=== PATIENT | female | born 1955 | race American Indian/Alaskan Native ===

== ENCOUNTER 2018-02-19 10:03 | Inpatient (IN) | payer MEDICAID, OTHER ==
[2018-02-19 10:10] VITALS: BMI 28.8
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
[2018-02-19] MEDS ORDERED: cefTRIAXone 2 GM IN NS 2 GM/100 ML BAG IVPB STA (10:26)
[2018-02-19] MEDS ORDERED: Azithromycin 500MG/NS 250ml 500 MG/250 ML BAG IVPB STA (10:26)
[2018-02-19] MEDS ORDERED: Albuterol-Ipratrop 3 mg / 0.5 (3 ml) UD IH STA (10:26)
[2018-02-19] MEDS ORDERED: Magnesium Oxide 400 mg Tab UD PO STA (10:26)
[2018-02-19] MEDS ORDERED: Sodium Chloride 0.9% 500 ML IV STA (12:10)
[2018-02-19 12:37] LABS: VENOUS BLOOD GAS BASE EXCESS 3.2 mmol/L (0.0-2.0); VENOUS BLOOD GAS PO2 62 mm/Hg (30-55); VENOUS BLOOD PH 7.36 (7.32-7.43)
[2018-02-19 12:40] LABS: BASO # 0.01 K/mm3 (0.0-2.0); BASO % 0.1 % (0.0-3.0); EOS # 0.1 (0.0-0.7); EOS % 0.7 % (1.5-5.0); GRAN # 12.29 (1.4-6.5); GRAN % 80.5 % (50.0-68.0); HEMOGLOBIN 13.1 g/dL (12.0-16.0); LYMPH % 13.1 % (22.0-35.0); MEAN CELL VOLUME 92.4 fl (80.0-105.0); MEAN CORPUSCULAR HEMOGLOBIN 29.2 pg (25.0-35.0); MEAN CORPUSCULAR HGB CONC 31.6 g/dl (31.0-37.0); MEAN PLATELET VOLUME 9.6 fl (7.0-11.0); MONO # 0.9 (0.1-0.6); MONO % 5.6 % (1.0-6.0); RBC 4.48 10^6/uL (3.5-6.1); RED CELL DISTRIBUTION WIDTH 13.6 % (11.5-14.5); WHITE BLOOD COUNT 15.2 10^3/uL (4.5-11.0)
[2018-02-19 12:49] LABS: BLOOD UREA NITROGEN 18 mg/dL (7-21); CALCIUM 8.7 mg/dL (8.4-10.5); GFR NON-AFRICAN AMERICAN > 60
--- NOTE | 2018-02-19 13:06 | RAD ---
Date of service: 02/19/2018 HISTORY: couigh 2 wks, rales on ausc COMPARISON: 06/08/2014 FINDINGS: LUNGS: Bibasilar infiltrates PLEURA: No significant pleural effusion identified, no pneumothorax apparent. CARDIOVASCULAR: No aortic atherosclerotic calcification present. Normal cardiac size. No pulmonary vascular congestion. OSSEOUS STRUCTURES: No significant abnormalities. VISUALIZED UPPER ABDOMEN: Normal. OTHER FINDINGS: None. IMPRESSION: Bibasilar infiltrates
--- NOTE | 2018-02-19 13:38 | CARD ---
APPROVED REPORT Date of service: 02/19/2018 EKG Measurement Heart [id number] <Conclusion> Sinus tachycardia Possible Left atrial enlargement Nonspecific T wave abnormality
[2018-02-19] MEDS ORDERED: Albuterol-Ipratrop 3 mg / 0.5 (3 ml) UD IH PRN (14:16)
[2018-02-19] MEDS ORDERED: methylPREDNISolone 40 MG in Sodium Chloride 0.9% 100 ML IVPB ONE (14:23)
[2018-02-19] MEDS ORDERED: Sodium Chloride 0.9% 1,000 ML IV SCH (14:30)
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
[2018-02-19] MEDS: Sodium Chloride 0.9% 1,000 ML IV SCH (14:50)
[2018-02-19 16:48] LABS: MYCOPLASMA PNEUMONIAE IGM NEGATIVE (NEGATIVE)
[2018-02-19] MEDS: Enoxaparin 40 mg Syringe SC SCH (17:25)
[2018-02-19] MEDS: guaiFENesin 200 mg/10 ml Syrup UD PO PRN (17:26)
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
[2018-02-19] MEDS ORDERED: LEVETIRACETAM 1000 MG PO SCH (18:00)
[2018-02-19] MEDS: Albuterol-Ipratrop 3 mg / 0.5 (3 ml) UD IH SCH (20:47)
[2018-02-19] MEDS: Budesonide 0.5 mg/2 ml Inhal Susp UD IH SCH (20:47)
[2018-02-19] MEDS: Arformoterol 15 mcg/2 ml Inh Sol IH SCH (20:47)
[2018-02-19] MEDS ORDERED: Pneumococcal 23-Valent Vaccine IM ONE (21:43)
[2018-02-19] MEDS ORDERED: Influenza Vaccine 60 mcg/0.5 mL SYR (4YR UP) IM ONE (21:43)
[2018-02-19] MEDS: MethylPREDNISolone 40 mg Vial IVP SCH (22:10)
[2018-02-19] MEDS: Piperacillin/Tazobact 3.375 gm 100 ML IVPB SCH (22:11)
[2018-02-20] MEDS: Albuterol-Ipratrop 3 mg / 0.5 (3 ml) UD IH SCH ×5 (01:59→23:59)
[2018-02-20] MEDS: guaiFENesin 200 mg/10 ml Syrup UD PO PRN ×5 (04:01→23:53)
[2018-02-20] MEDS: Sodium Chloride 0.9% 1,000 ML IV SCH ×2 (05:31→09:32)
[2018-02-20] MEDS: Piperacillin/Tazobact 3.375 gm 100 ML IVPB SCH ×3 (05:31→22:12)
[2018-02-20] MEDS: MethylPREDNISolone 40 mg Vial IVP SCH ×3 (05:31→22:07)
[2018-02-20 07:48] LABS: GRAN # 12.78 (1.4-6.5); GRAN % 91.4 % (50.0-68.0); HEMOGLOBIN 12.4 g/dL (12.0-16.0); LYMPH % 6.9 % (22.0-35.0); MEAN CELL VOLUME 92.1 fl (80.0-105.0); MEAN CORPUSCULAR HEMOGLOBIN 28.6 pg (25.0-35.0); MEAN CORPUSCULAR HGB CONC 31.1 g/dl (31.0-37.0); MEAN PLATELET VOLUME 9.6 fl (7.0-11.0); MONO # 0.2 (0.1-0.6); MONO % 1.7 % (1.0-6.0); PLATELET COUNT 238 10^3/uL (120.0-450.0); RBC 4.33 10^6/uL (3.5-6.1); RED CELL DISTRIBUTION WIDTH 13.4 % (11.5-14.5)
[2018-02-20] MEDS: Arformoterol 15 mcg/2 ml Inh Sol IH SCH ×2 (07:55→19:35)
[2018-02-20] MEDS: Budesonide 0.5 mg/2 ml Inhal Susp UD IH SCH ×2 (07:55→19:35)
[2018-02-20 08:07] LABS: ALB/GLOB RATIO 0.9 (1.1-1.8); ALBUMIN 3.6 g/dL (3.0-4.8); ALT/SGPT 18 U/L (7-56); AST/SGOT 24 U/L (14-36); BLOOD UREA NITROGEN 13 mg/dL (7-21); GFR NON-AFRICAN AMERICAN > 60
[2018-02-20 08:11] LABS: LYMPHOCYTE 7 % (22.0-35.0); MONOCYTE 1 % (1.0-6.0); NEUTROPHIL 92 % (50.0-70.0)
[2018-02-20 08:12] LABS: PLATELET ESTIMATE NORMAL (NORMAL)
[2018-02-20] MEDS: Azithromycin 500MG/NS 250ml 500 MG/250 ML BAG IVPB SCH (09:31)
[2018-02-20] MEDS: Enoxaparin 40 mg Syringe SC SCH (09:32)
[2018-02-20] MEDS ORDERED: NIFEDIPINE 30 MG PO SCH ×2 (10:00)
[2018-02-20] MEDS ORDERED: cefTRIAXone 1 gm 1 GM/100 ML BAG IVPB SCH (10:00)
[2018-02-20] MEDS ORDERED: Pantoprazole 40 mg EC Tab PO SCH (10:00)
--- NOTE | 2018-02-20 13:13 | CP.PCM.PN ---
<Rafi Aguilera - Last Filed: 02/20/18 15:29> Subjective - Date & Time of Evaluation Date of Evaluation: 02/20/18 Time of Evaluation: 15:29 - Subjective Subjective: Rafi Aguilera DO PGY1 - Internal Medicine Track Layer - Medicine Progress Note Patient was seen and examined at bedside this morning, no acute events overnight. Patient was afebrile overnight. Still complaining of productive cough, fatigue, dyspnea. Does report her cough is improving w/ supressants. Denies any cp, abd pain, n/v/d/c, urinary discomfort. Objective - Vital Signs/Intake and Output Vital Signs (last 24 hours): Temp Pulse Resp BP Pulse Ox 97.5 F L 63 18 156/81 H 95 02/20/18 06:00 02/20/18 06:00 02/20/18 06:00 02/20/18 06:00 02/20/18 06:00 Intake and Output: 02/20/18 02/20/18 06:59 18:59 Intake Total 360 Balance 360 - Medications Medications: Current Medications Acetaminophen (Tylenol 325mg Tab) 650 mg PO Q4 PRN PRN Reason: Fever >100.4 F Albuterol/Ipratropium (Duoneb 3 Mg/0.5 Mg (3 Ml) Ud) 3 ml IH [id number] [facility] Last Admin: 02/20/18 07:55 Dose: 3 ml Albuterol/Ipratropium (Duoneb 3 Mg/0.5 Mg (3 Ml) Ud) 3 ml IH [id number] PRN PRN Reason: Shortness of Breath Arformoterol Tartrate (Brovana) 15 mcg IH [id number] [facility] Last Admin: 02/20/18 07:55 Dose: 15 mcg Aspirin (Aspirin Chewable) 81 mg PO DAILY [facility] Last Admin: 02/20/18 09:31 Dose: 81 mg Atorvastatin Calcium (Lipitor) 40 mg PO HS [facility] Last Admin: 02/19/18 22:10 Dose: 40 mg Budesonide (Pulmicort Respules) 1 mg IH [id number] [facility] Last Admin: 02/20/18 07:55 Dose: 1 mg Enoxaparin Sodium (Lovenox) 40 mg SC DAILY [facility]; Protocol Last Admin: 02/20/18 09:32 Dose: 40 mg Guaifenesin (Robitussin) 200 mg PO Q4H PRN PRN Reason: Cough and congestion Last Admin: 02/20/18 09:37 Dose: 200 mg Azithromycin (Zithromax 500mg In Ns) 500 mg in 250 mls @ 167 mls/hr IVPB DAILY [facility]; Protocol Last Admin: 02/20/18 09:31 Dose: 167 mls/hr Piperacillin Sod/Tazobactam Sod (Zosyn 3.375 In Ns 100ml) 100 mls @ 25 mls/hr IVPB Q8 [facility]; Protocol Last Admin: 02/20/18 05:31 Dose: 25 mls/hr Levetiracetam (Keppra) 500 mg PO BID [facility] Methadone HCl (Methadone) 110 mg PO DAILY [facility] Last Admin: 02/20/18 09:53 Dose: 110 mg Methylprednisolone (Solu-Medrol) 40 mg IVP Q8 [facility] Last Admin: 02/20/18 05:31 Dose: 40 mg Montelukast Sodium (Singulair) 10 mg PO HS [facility] Last Admin: 02/19/18 22:10 Dose: 10 mg Pantoprazole Sodium (Protonix Ec Tab) 40 mg PO 0600 [facility] - Labs Labs: 02/20/18 07:30 02/20/18 07:30 Physical Exam - Constitutional Appears: Well, No Acute Distress - Head Exam Head Exam: ATRAUMATIC, NORMOCEPHALIC - Eye Exam Eye Exam: EOMI, Normal appearance, PERRL - ENT Exam ENT Exam: Moist mucous membranes, No oropharyngeal erythema or exudate - Neck Exam Neck exam: No cervical lymphadenopathy - Respiratory Exam Respiratory Exam: Diffuse wheezes, crackles, ronchi throughout all lung mendoza bilaterally; Prolonged expiratory phase - Cardiovascular Exam Cardiovascular Exam: RRR, +S1, +S2 - GI/Abdominal Exam GI & Abdominal Exam: Normal Bowel Sounds, Soft. absent: Tenderness - Extremities Exam Extremities exam: Positive for: pedal pulses present. Negative for: pedal edema - Neurological Exam Neurological exam: Alert, Oriented x3 - Psychiatric Exam Psychiatric exam: Normal Affect, Normal Mood - Skin Skin Exam: Dry, Intact, Normal Color Assessment and Plan - Assessment and Plan (Free Text) Assessment: 62F w/ PMH of Epilepsy, CAD s/p stent, HTN, COPD, presented to [facility] on 02/19 w/ complaints of fever, dyspnea, and cough. Admitted for work up and management of Sepsis 2/2 CAP; as well as COPD exacerbation w/ respiratory failure 2/2 CAP. Plan: Sepsis 2/2 CAP - Improving CXR 02/19 - Bibasilar infiltrates Afebrile, WBC downtrending, HR regular rate, lactate wnl Procal elevated on admission; downtrending today Flu, Strep HIV, GBS, Mycoplasma negative Legionella pending Sputum Cx - normal oral humble on stain; cultures pending Blood Cx negative at 24H Antibiotic coverage day 2 DC Rocephin, Start Zosyn, C/w Zithromax 500 QD DC IVF NS@100 mls/hr C/w Acetaminophen 650mg PRN for fever + mild pain C/w Robitussin ID following Appreciate Recs COPD Exacerbation w/ respiratory failure 2/2 CAP: C/w 3L O2 via NC - Maintain O2 Sat 90-92% Solumedrol 40 Q8 x 4 days - Day 2 Home Symbicort NF here; C/w Brovana + Budesonide Q12 C/w Singulair QD Hx HTN Patient was hypertensive this morning; normotensive on reevaluation Will continue holding nifedipine and will DC IVF Hx Seizure Patient reports she is on Keppra 500mg BID Hx Opiate Abuse C/w Home Methadone 110 QAM - confirmed w/ spectrum Hx HLD C/w Home lipitor Hx CAD C/w ASA 81 QD Prophylaxis GI: Protonix DVT: Lovenox Patient was seen, examined, and discussed w/ attending physician Dr. Delia Aguilera DO PGY1 - Internal Medicine Track Layer - Medicine H&P <Delia Aguilera R - Last Filed: 02/22/18 07:54> Objective - Vital Signs/Intake and Output Vital Signs (last 24 hours): Temp Pulse Resp BP Pulse Ox 98.2 F 73 16 145/71 96 02/21/18 22:36 02/21/18 22:36 02/21/18 22:36 02/21/18 22:36 02/21/18 22:36 Intake and Output: 02/22/18 02/22/18 06:59 18:59 Intake Total 240 Balance 240 - Medications Medications: Current Medications Acetaminophen (Tylenol 325mg Tab) 650 mg PO Q4 PRN PRN Reason: Fever >100.4 F Acetylcysteine (Acetylcysteine 20%) 4 ml IH [id number] PRN PRN Reason: Cough Last Admin: 02/21/18 20:32 Dose: 4 ml Albuterol/Ipratropium (Duoneb 3 Mg/0.5 Mg (3 Ml) Ud) 3 ml IH Q2H PRN PRN Reason: Shortness of Breath Albuterol/Ipratropium (Duoneb 3 Mg/0.5 Mg (3 Ml) Ud) 3 ml IH [id number] [facility] Last Admin: 02/22/18 05:06 Dose: Not Given Arformoterol Tartrate (Brovana) 15 mcg IH [id number] [facility] Last Admin: 02/21/18 20:18 Dose: 15 mcg Aspirin (Aspirin Chewable) 81 mg PO DAILY [facility] Last Admin: 02/21/18 09:43 Dose: 81 mg Atorvastatin Calcium (Lipitor) 40 mg PO HS [facility] Last Admin: 02/21/18 21:29 Dose: 40 mg Benzonatate (Tessalon Perles) 100 mg PO TID [facility] Last Admin: 02/21/18 18:05 Dose: 100 mg Budesonide (Pulmicort Respules) 1 mg IH [id number] [facility] Last Admin: 02/21/18 20:18 Dose: 1 mg Enoxaparin Sodium (Lovenox) 40 mg SC DAILY [facility]; Protocol Last Admin: 02/21/18 09:42 Dose: 40 mg Guaifenesin (Robitussin) 200 mg PO Q4H PRN PRN Reason: Cough and congestion Last Admin: 02/21/18 13:59 Dose: 200 mg Azithromycin (Zithromax 500mg In Ns) 500 mg in 250 mls @ 167 mls/hr IVPB DAILY [facility]; Protocol Last Admin: 02/21/18 09:42 Dose: 167 mls/hr Piperacillin Sod/Tazobactam Sod (Zosyn 3.375 In Ns 100ml) 100 mls @ 25 mls/hr IVPB Q8 [facility]; Protocol Last Admin: 02/22/18 06:22 Dose: 25 mls/hr Levetiracetam (Keppra) 500 mg PO BID [facility] Last Admin: 02/21/18 17:09 Dose: 500 mg Methadone HCl (Methadone) 110 mg PO DAILY [facility] Last Admin: 02/21/18 09:50 Dose: 110 mg Methylprednisolone (Solu-Medrol) 40 mg IVP Q8 [facility] Last Admin: 02/22/18 06:21 Dose: 40 mg Montelukast Sodium (Singulair) 10 mg PO HS [facility] Last Admin: 02/21/18 21:29 Dose: 10 mg Nifedipine (Procardia Xl) 30 mg PO DAILY [facility] Last Admin: 02/21/18 09:43 Dose: 30 mg Pantoprazole Sodium (Protonix Ec Tab) 40 mg PO 0600 [facility] Last Admin: 02/22/18 06:21 Dose: 40 mg Polyethylene Glycol (Miralax) 17 gm PO DAILY [facility] Promethazine HCl/Codeine (Phenergan/Codeine Oral Syrup) 5 ml PO Q8 PRN PRN Reason: Cough Stop: 02/23/18 22:01 Last Admin: 02/22/18 02:50 Dose: 5 ml - Labs Labs: 02/21/18 07:15 02/21/18 07:15 Attending/Attestation - Attestation I have personally seen and examined this patient.: Yes I have fully participated in the care of the patient.: Yes I have reviewed all pertinent clinical information, including history, physical exam and plan: Yes Notes (Text): Patient seen and examined by me with resident at 11AM on 02/20/18. Case including HPI, physical exam, and assessment and plan discussed with resident. Agree with above with following additions/corrections. Patient is a 62-year-old female past medical history significant for seizures, coronary artery disease, hypercholesterolemia, hypertension, and COPD the presented to emergency room with shortness of breath, productive cough, and fever. Patient states that she is feeling a little better today. She states she is still coughing "a lot" but cough syrup is helping. Shortness of breath improved. No chest pain or palpitations. No nausea, vomiting, or abdominal pain. Appetite has improved. No fevers or chills. Patient states she has a headache when she coughs. No dizziness. No dysuria. Physical exam: General: Awake and alert sitting up in bed in no acute distress HEENT: Normocephalic, atraumatic. Extraocular muscles intact, pupils equal and reactive, no scleral icterus. Oropharynx is pink and moist. No pharyngeal erythema or exudate appreciated. Neck is supple. Positive right anterior cerv ical lymphadenopathy Cardiovascular: Regular rhythm. Normal S1 and S2.No murmurs, rubs, or gallops appreciated Pulmonary: Normal respiratory effort. Positive wheezing and coarse breath sounds throughout. No rales appreciated. Gastrointestinal: Soft, nondistended. Nontender. Positive bowel sounds all 4 quadrants. No guarding. Musculoskeletal: Moves all extremities. No calf tenderness. No edema a ppreciated. No CVA tenderness. Central nervous system: AAO x3, CN II through XII grossly intact. 5/5 muscle strength all extremities. Dermatologic: Skin warm and dry. Assessment and plan: Patient is a 62-year-old female past medical history significant for seizures, coronary artery disease, hypercholesterolemia, hypertension, and COPD the presented to emergency room with shortness of breath, productive cough, and fever. 1. Sepsis secondary to community-acquired pneumonia. Fever and tachycardia resolved. Leukocytosis downtrending. ID following, recommendations appreciated. Continue Zosyn and Zithromax. Chest xray as read by me shows infiltrates at bases bilaterally. Influenza, strep Pneumoniae, mycoplasma antigen, and urine for Legionella negative. Pro-calcitonin 3.31. Lactate 0.9. 2. COPD exacerbation with hypoxemia secondary to pneumonia. Continue O2 via nasal cannula as needed. Continue Solu-Medrol 40 mg IV every 8 hours, taper. Continue Brovana and Pulmicort. Continue Robitussin as needed. Continue nebulizer treatments. Continue home singulair 3. HTN. Continue Nifedipine with hold parameters. 4. CAD. Continue home ASA and Nifedipine. Continue home lipitor 5. Seziure disorder. Continue home Keppra 500mg PO BID. 6. Hypercholesterolemia. Continue home lipitor 7. History of heroin abuse. Continue home methadone. Confirmed with patient's methadone clinic. 8. GI/DVT prophylaxis. Protonix/Lovenox 9. Patient is a full code Case was discussed in detail with patient regarding current diagnosis and treatment plan. All questions answered.
[2018-02-20] MEDS ORDERED: Albuterol-Ipratrop 3 mg / 0.5 (3 ml) UD IH PRN (16:24)
--- NOTE | 2018-02-20 18:52 | CP.PCM.PN ---
Subjective - Date & Time of Evaluation Date of Evaluation: 02/20/18 Time of Evaluation: 16:30 - Subjective Subjective: Infectious Disease Follow Up: February 20, 2018 62 yo AA female with PMHx of Epilepsy, CAD s/p stent, HTN, COPD, [place] [facility] [place] w/ complaints of dyspnea at rest and at exertion, fatigue, subjective fevers, chills, and constant productive cough w/ dark green/yellow sputum which awakens patient at night. Started on Rocephin and Azithromycin. Now on Zosyn and Azithromycin. Patient feeling slightly better today. Objective - Vital Signs/Intake and Output Vital Signs (last 24 hours): Temp Pulse Resp BP Pulse Ox 98.2 F 79 16 136/72 95 02/20/18 14:00 02/20/18 14:00 02/20/18 14:00 02/20/18 14:00 02/20/18 14:00 Intake and Output: 02/20/18 02/20/18 06:59 18:59 Intake Total 360 Balance 360 - Medications Medications: Current Medications Acetaminophen (Tylenol 325mg Tab) 650 mg PO Q4 PRN PRN Reason: Fever >100.4 F Albuterol/Ipratropium (Duoneb 3 Mg/0.5 Mg (3 Ml) Ud) 3 ml IH Q2H PRN PRN Reason: Shortness of Breath Albuterol/Ipratropium (Duoneb 3 Mg/0.5 Mg (3 Ml) Ud) 3 ml IH [id number] [facility] Arformoterol Tartrate (Brovana) 15 mcg IH [id number] [facility] Last Admin: 02/20/18 07:55 Dose: 15 mcg Aspirin (Aspirin Chewable) 81 mg PO DAILY [facility] Last Admin: 02/20/18 09:31 Dose: 81 mg Atorvastatin Calcium (Lipitor) 40 mg PO HS [facility] Last Admin: 02/19/18 22:10 Dose: 40 mg Budesonide (Pulmicort Respules) 1 mg IH [id number] [facility] Last Admin: 02/20/18 07:55 Dose: 1 mg Enoxaparin Sodium (Lovenox) 40 mg SC DAILY [facility]; Protocol Last Admin: 02/20/18 09:32 Dose: 40 mg Guaifenesin (Robitussin) 200 mg PO Q4H PRN PRN Reason: Cough and congestion Last Admin: 02/20/18 17:08 Dose: 200 mg Azithromycin (Zithromax 500mg In Ns) 500 mg in 250 mls @ 167 mls/hr IVPB DAILY [facility]; Protocol Last Admin: 02/20/18 09:31 Dose: 167 mls/hr Piperacillin Sod/Tazobactam Sod (Zosyn 3.375 In Ns 100ml) 100 mls @ 25 mls/hr IVPB Q8 [facility]; Protocol Last Admin: 02/20/18 13:39 Dose: 25 mls/hr Levetiracetam (Keppra) 500 mg PO BID [facility] Last Admin: 02/20/18 17:08 Dose: 500 mg Methadone HCl (Methadone) 110 mg PO DAILY [facility] Last Admin: 02/20/18 09:53 Dose: 110 mg Methylprednisolone (Solu-Medrol) 40 mg IVP Q8 [facility] Last Admin: 02/20/18 13:38 Dose: 40 mg Montelukast Sodium (Singulair) 10 mg PO HS [facility] Last Admin: 02/19/18 22:10 Dose: 10 mg Pantoprazole Sodium (Protonix Ec Tab) 40 mg PO 0600 [facility] - Labs Labs: 02/20/18 07:30 02/20/18 07:30 - Constitutional Appears: Non-toxic, No Acute Distress, Chronically Ill - Head Exam Head Exam: ATRAUMATIC, NORMOCEPHALIC - Eye Exam Eye Exam: EOMI, PERRL Pupil Exam: NORMAL ACCOMODATION, PERRL - ENT Exam ENT Exam: Mucous Membranes Moist, Normal External Ear Exam, TM's Normal Bilaterally - Neck Exam Neck Exam: Full ROM, Normal Inspection - Respiratory Exam Respiratory Exam: Decreased Breath Sounds, Rhonchi. absent: Rales, Wheezes Additional comments: bilateral rhonchi in lower lobes. - Cardiovascular Exam Cardiovascular Exam: REGULAR RHYTHM, RRR, +S1, +S2 - GI/Abdominal Exam GI & Abdominal Exam: Soft, Normal Bowel Sounds. absent: Distended, Tenderness - Extremities Exam Extremities Exam: Full ROM, Normal Inspection - Neurological Exam Neurological Exam: Alert, Awake, CN II-XII Intact, Oriented x3 - Psychiatric Exam Psychiatric exam: Normal Affect, Normal Mood - Skin Skin Exam: Intact, Normal Color Assessment and Plan - Assessment and Plan (Free Text) Assessment: 62 yo AA female presenting with pneumonia. Chest X-ray showing involvement of the bilateral lower lobes. The patient is currently on Rocephin and Azithromycin. On Zosyn and Azithromycin at this time. Check Procalcitonin. Supportive care. Procalcitonin of 3.31 and today is 1.70. Mild improvement. Case discussed with Dr. Aguilera. Thank you for allowing me to participate in the care of the patient, we will follow with you.
[2018-02-21] MEDS: Albuterol-Ipratrop 3 mg / 0.5 (3 ml) UD IH SCH ×6 (04:23→23:21)
[2018-02-21] MEDS: Pantoprazole 40 mg EC Tab PO SCH (06:22)
[2018-02-21] MEDS: MethylPREDNISolone 40 mg Vial IVP SCH ×3 (06:22→21:30)
[2018-02-21] MEDS: Piperacillin/Tazobact 3.375 gm 100 ML IVPB SCH ×3 (06:23→21:29)
[2018-02-21] MEDS: guaiFENesin 200 mg/10 ml Syrup UD PO PRN ×2 (06:35→13:59)
[2018-02-21] MEDS: Budesonide 0.5 mg/2 ml Inhal Susp UD IH SCH ×2 (07:34→20:18)
[2018-02-21] MEDS: Arformoterol 15 mcg/2 ml Inh Sol IH SCH ×2 (07:34→20:18)
[2018-02-21 07:50] LABS: GRAN # 17.78 (1.4-6.5); GRAN % 88.3 % (50.0-68.0); HEMOGLOBIN 12.1 g/dL (12.0-16.0); LYMPH # 1.5 (1.2-3.4); LYMPH % 7.3 % (22.0-35.0); MEAN CORPUSCULAR HEMOGLOBIN 28.6 pg (25.0-35.0); MEAN CORPUSCULAR HGB CONC 31.4 g/dl (31.0-37.0); MEAN PLATELET VOLUME 9.3 fl (7.0-11.0); MONO # 0.9 (0.1-0.6); MONO % 4.4 % (1.0-6.0); RBC 4.23 10^6/uL (3.5-6.1); RED CELL DISTRIBUTION WIDTH 13.6 % (11.5-14.5); WHITE BLOOD COUNT 20.1 10^3/uL (4.5-11.0)
[2018-02-21 08:09] LABS: ALB/GLOB RATIO 0.9 (1.1-1.8); ALBUMIN 3.5 g/dL (3.0-4.8); ALT/SGPT 24 U/L (7-56); AST/SGOT 31 U/L (14-36); BLOOD UREA NITROGEN 15 mg/dL (7-21); CALCIUM 9.3 mg/dL (8.4-10.5); GFR NON-AFRICAN AMERICAN > 60
[2018-02-21] MEDS: Azithromycin 500MG/NS 250ml 500 MG/250 ML BAG IVPB SCH (09:42)
[2018-02-21] MEDS: Enoxaparin 40 mg Syringe SC SCH (09:42)
[2018-02-21] MEDS: NIFEdipine 30 mg ER Tab PO SCH (09:43)
[2018-02-21] MEDS ORDERED: POLYETHYLENE GLYCOL 3350 17 GM/Dose PACKET PO SCH (10:00)
[2018-02-21] MEDS ORDERED: Promethazine/Cod 6.25mg-10mg/5ml Syr UD PO PRN (12:53)
--- NOTE | 2018-02-21 12:54 | CP.PCM.PN ---
<Rafi Aguilera - Last Filed: 02/21/18 12:49> Subjective - Date & Time of Evaluation Date of Evaluation: 02/21/18 Time of Evaluation: 12:49 - Subjective Subjective: Rafi Aguilera DO PGY1 - Internal Medicine Codifier - Medicine Progress Note Patient was seen and examined this morning at bedside; Last night patient reported shortness of breath; duoneb ariel/prn increased. Overnight patient reported worse coughing which interrupted w/ sleep. During evaluation this morning patient reports her SOB is improved, and denies fever. However patient is reported mild rib pain due to coughing. Patient also reports constipation this AM; when further asked she says it is common for her to go w/o BM for up to 6 days. Denies any bowel agents as outpt. Objective - Vital Signs/Intake and Output Vital Signs (last 24 hours): Temp Pulse Resp BP Pulse Ox 97.4 F L 64 18 168/79 H 96 02/21/18 06:00 02/21/18 06:00 02/21/18 06:00 02/21/18 06:00 02/21/18 06:00 Intake and Output: 02/21/18 02/21/18 06:59 18:59 Intake Total 180 Balance 180 - Medications Medications: Current Medications Acetaminophen (Tylenol 325mg Tab) 650 mg PO Q4 PRN PRN Reason: Fever >100.4 F Albuterol/Ipratropium (Duoneb 3 Mg/0.5 Mg (3 Ml) Ud) 3 ml IH Q2H PRN PRN Reason: Shortness of Breath Albuterol/Ipratropium (Duoneb 3 Mg/0.5 Mg (3 Ml) Ud) 3 ml IH [id number] [facility] Last Admin: 02/21/18 11:36 Dose: 3 ml Arformoterol Tartrate (Brovana) 15 mcg IH [id number] [facility] Last Admin: 02/21/18 07:34 Dose: 15 mcg Aspirin (Aspirin Chewable) 81 mg PO DAILY [facility] Last Admin: 02/21/18 09:43 Dose: 81 mg Atorvastatin Calcium (Lipitor) 40 mg PO HS [facility] Last Admin: 02/20/18 22:07 Dose: 40 mg Budesonide (Pulmicort Respules) 1 mg IH [id number] [facility] Last Admin: 02/21/18 07:34 Dose: 1 mg Enoxaparin Sodium (Lovenox) 40 mg SC DAILY [facility]; Protocol Last Admin: 02/21/18 09:42 Dose: 40 mg Guaifenesin (Robitussin) 200 mg PO Q4H PRN PRN Reason: Cough and congestion Last Admin: 02/21/18 06:35 Dose: 200 mg Azithromycin (Zithromax 500mg In Ns) 500 mg in 250 mls @ 167 mls/hr IVPB DAILY [facility]; Protocol Last Admin: 02/21/18 09:42 Dose: 167 mls/hr Piperacillin Sod/Tazobactam Sod (Zosyn 3.375 In Ns 100ml) 100 mls @ 25 mls/hr IVPB Q8 [facility]; Protocol Last Admin: 02/21/18 06:23 Dose: 25 mls/hr Levetiracetam (Keppra) 500 mg PO BID [facility] Last Admin: 02/21/18 09:43 Dose: 500 mg Methadone HCl (Methadone) 110 mg PO DAILY [facility] Last Admin: 02/21/18 09:50 Dose: 110 mg Methylprednisolone (Solu-Medrol) 40 mg IVP Q8 [facility] Last Admin: 02/21/18 06:22 Dose: 40 mg Montelukast Sodium (Singulair) 10 mg PO HS [facility] Last Admin: 02/20/18 22:07 Dose: 10 mg Nifedipine (Procardia Xl) 30 mg PO DAILY [facility] Last Admin: 02/21/18 09:43 Dose: 30 mg Pantoprazole Sodium (Protonix Ec Tab) 40 mg PO 0600 [facility] Last Admin: 02/21/18 06:22 Dose: 40 mg Polyethylene Glycol (Miralax) 17 gm PO DAILY [facility] - Labs Labs: 02/21/18 07:15 02/21/18 07:15 Physical Exam - Constitutional Appears: Uncomfotable, Coughing, Ill, Does not appear toxic - Head Exam Head Exam: ATRAUMATIC, NORMOCEPHALIC - Eye Exam Eye Exam: EOMI, Normal appearance, PERRL - ENT Exam ENT Exam: Moist mucous membranes, No oropharyngeal erythema or exudate - Neck Exam Neck exam: No cervical lymphadenopathy - Respiratory Exam Respiratory Exam: Ronchi have improved however diffuse wheezing still auscultated on exam; patient continues to have prolonged expiratory phase - Cardiovascular Exam Cardiovascular Exam: RRR, +S1, +S2 - GI/Abdominal Exam GI & Abdominal Exam: Normal Bowel Sounds, Soft. absent: Tenderness - Extremities Exam Extremities exam: Positive for: pedal pulses present. Negative for: pedal edema - Neurological Exam Neurological exam: Alert, Oriented x3 - Psychiatric Exam Psychiatric exam: Normal Affect, Normal Mood - Skin Skin Exam: Dry, Intact, Normal Color Assessment and Plan - Assessment and Plan (Free Text) Assessment: 62F w/ PMH of Epilepsy, CAD s/p stent, HTN, COPD, presented to [facility] on 02/19 w/ complaints of fever, dyspnea, and cough. Admitted for work up and management of Sepsis 2/2 CAP; as well as COPD exacerbation w/ respiratory failure 2/2 CAP. Plan: CAP - No longer meeting sepsis critera - CXR 02/19 - Bibasilar infiltrates - Leukocytosis worsening - most likely 2/2 steroid use - Flu, Strep HIV, GBS, Mycoplasma negative - Legionella pending - Sputum Cx - normal oral humble - Blood Cx 2/2 negative at 48H - Antibiotic coverage day 3 - C/w Zosyn, C/w Zithromax 500 QD - C/w Acetaminophen 650mg PRN for fever + mild pain - C/w Robitussin during the pay - Start Promethazine/Codeine HS for cough - 2 nights total; ending 02/22 PM - ID following Appreciate Recs COPD Exacerbation w/ respiratory failure 2/2 CAP: C/w 3L O2 via NC - Maintain O2 Sat 90-92% C/w Solumedrol 40 Q8 x 4 days - Day 3 Increased Duoneb frequency last night; Currently Q4sch/Q2prn Home Symbicort NF here; C/w Brovana + Budesonide Q12 C/w Singulair QD Hx HTN Patient was hypertensive yesterday; IVF was DC; and patient became normotensive Patient remains hypertensive this morning Will resume home nifedipine Hx Seizure C/w Keppra 500 BID Hx Opiate Abuse C/w Home Methadone 110 QAM - confirmed w/ spectrum Hx Constipation - Most likely opiate induced Start miralax 17gm QD Hx HLD C/w Home lipitor Hx CAD C/w ASA 81 QD Prophylaxis GI: Protonix DVT: Lovenox Patient was seen, examined, and discussed w/ attending physician Dr. Delia Aguilera DO PGY1 - Internal Medicine Codifier - Medicine H&P <Aguilera,Delia R - Last Filed: 02/22/18 12:38> Objective - Vital Signs/Intake and Output Vital Signs (last 24 hours): Temp Pulse Resp BP Pulse Ox 98.3 F 62 18 160/80 H 95 02/22/18 06:00 02/22/18 06:00 02/22/18 06:00 02/22/18 06:00 02/22/18 06:00 Intake and Output: 02/22/18 02/22/18 06:59 18:59 Intake Total 240 Balance 240 - Medications Medications: Current Medications Acetaminophen (Tylenol 325mg Tab) 650 mg PO Q4 PRN PRN Reason: Fever >100.4 F Acetylcysteine (Acetylcysteine 20%) 4 ml IH [id number] PRN PRN Reason: Cough Last Admin: 02/21/18 20:32 Dose: 4 ml Albuterol/Ipratropium (Duoneb 3 Mg/0.5 Mg (3 Ml) Ud) 3 ml IH Q2H PRN PRN Reason: Shortness of Breath Albuterol/Ipratropium (Duoneb 3 Mg/0.5 Mg (3 Ml) Ud) 3 ml IH [id number] [facility] Last Admin: 02/22/18 05:06 Dose: Not Given Arformoterol Tartrate (Brovana) 15 mcg IH [id number] [facility] Last Admin: 02/21/18 20:18 Dose: 15 mcg Aspirin (Aspirin Chewable) 81 mg PO DAILY [facility] Last Admin: 02/22/18 09:54 Dose: 81 mg Atorvastatin Calcium (Lipitor) 40 mg PO HS [facility] Last Admin: 02/21/18 21:29 Dose: 40 mg Benzonatate (Tessalon Perles) 100 mg PO TID [facility] Last Admin: 02/22/18 09:53 Dose: 100 mg Budesonide (Pulmicort Respules) 1 mg IH [id number] [facility] Last Admin: 02/21/18 20:18 Dose: 1 mg Enoxaparin Sodium (Lovenox) 40 mg SC DAILY [facility]; Protocol Last Admin: 02/22/18 09:53 Dose: 40 mg Azithromycin (Zithromax 500mg In Ns) 500 mg in 250 mls @ 167 mls/hr IVPB DAILY [facility]; Protocol Last Admin: 02/22/18 09:53 Dose: 167 mls/hr Piperacillin Sod/Tazobactam Sod (Zosyn 3.375 In Ns 100ml) 100 mls @ 25 mls/hr IVPB Q8 [facility]; Protocol Last Admin: 02/22/18 06:22 Dose: 25 mls/hr Levetiracetam (Keppra) 500 mg PO BID [facility] Last Admin: 02/22/18 09:54 Dose: 500 mg Methadone HCl (Methadone) 110 mg PO DAILY [facility] Last Admin: 02/22/18 09:53 Dose: 110 mg Methylprednisolone (Solu-Medrol) 40 mg IVP Q8 [facility] Last Admin: 02/22/18 06:21 Dose: 40 mg Montelukast Sodium (Singulair) 10 mg PO HS [facility] Last Admin: 02/21/18 21:29 Dose: 10 mg Nifedipine (Procardia Xl) 30 mg PO DAILY [facility] Last Admin: 02/22/18 09:54 Dose: 30 mg Pantoprazole Sodium (Protonix Ec Tab) 40 mg PO 0600 [facility] Last Admin: 02/22/18 06:21 Dose: 40 mg Polyethylene Glycol (Miralax) 17 gm PO DAILY [facility] Last Admin: 02/22/18 09:53 Dose: 17 gm Promethazine HCl/Codeine (Phenergan/Codeine Oral Syrup) 5 ml PO Q8 PRN PRN Reason: Cough Stop: 02/23/18 22:01 Last Admin: 02/22/18 11:21 Dose: 5 ml - Labs Labs: 02/22/18 08:30 02/22/18 06:00 Attending/Attestation - Attestation I have personally seen and examined this patient.: Yes I have fully participated in the care of the patient.: Yes I have reviewed all pertinent clinical information, including history, physical exam and plan: Yes Notes (Text): Patient seen and examined by me with resident at 9AM on 02/21/18. Case including HPI, physical exam, and assessment and plan discussed with resident. Agree with above with following additions/corrections. Patient is a 62-year-old female past medical history significant for seizures, coronary artery disease, hypercholesterolemia, hypertension, and COPD the presented to emergency room with shortness of breath, productive cough, and fever. Patient states that she continues to feel a little better every day. Cough is unchanged from tomorrow but cough syrup is helping a little with the frequency. Shortness of breath also improved. Patient denies chest pain or palpitations. No nausea, vomiting, or abdominal pain. Appetite much better. No fevers or chills. Patient has headache when she coughs. No dizziness. No dysuria. Physical exam: General: Awake and alert sitting up in bed in no acute distress HEENT: Normocephalic, atraumatic. Extraocular muscles intact, pupils equal and reactive, no scleral icterus. Oropharynx is pink and moist. No pharyngeal erythema or exudate appreciated. Neck is supple. Cardiovascular: Regular rhythm. Normal S1 and S2.No murmurs, rubs, or gallops appreciated Pulmonary: Normal respiratory effort. Positive wheezing and coarse breath sounds throughout. No rales appreciated. Gastrointestinal: Soft, nondistended. Nontender. Positive bowel sounds all 4 quadrants. No guarding. Musculoskeletal: Moves all extremities. No calf tenderness. No edema appreciated. No CVA tenderness. Central nervous system: AAO x3, CN II through XII grossly intact. 5/5 muscle strength all extremities. Dermatologic: Skin warm and dry. Assessment and plan: Patient is a 62-year-old female past medical history significant for seizures, coronary artery disease, hypercholesterolemia, hypertension, and COPD the presented to emergency room with shortness of breath, productive cough, and fever. 1. Sepsis secondary to community-acquired pneumonia. Sepsis resolved. Fever and tachycardia resolved. Leukocytosis uptrended likely secondary to steorids. ID following, recommendations appreciated. Continue Zosyn and Zithromax. Chest xray as read by me shows infiltrates at bases bilaterally. Influenza, strep Pneumo niae, mycoplasma antigen, and urine for Legionella negative. Pro-calcitonin 3.31. Repeat procalcitonin 1.70. Lactate 0.9. 2. COPD exacerbation with hypoxemia secondary to pneumonia. Continue O2 via n marysol cannula as needed. Continue Solu-Medrol 40 mg IV every 8 hours, taper when improved. Continue Brovana and Pulmicort. Will place on phenergan with codeine to help with suppression of cough. Continue nebulizer treatments. Continue home singulair 3. HTN. Continue Nifedipine 4. CAD. Continue ASA and Nifedipine. Continue lipitor 5. Seziure disorder. Continue Keppra 500mg PO BID. 6. Hypercholesterolemia. Continue lipitor 7. History of heroin abuse. Continue methadone. Confirmed with patient's [facility]. 8. GI/DVT prophylaxis. Protonix/Lovenox 9. Patient is a full code Case was discussed in detail with patient regarding current diagnosis and treatment plan. All questions answered.
--- NOTE | 2018-02-21 13:28 | CP.PCM.PN ---
Subjective - Date & Time of Evaluation Date of Evaluation: 02/21/18 Time of Evaluation: 12:15 - Subjective Subjective: Infectious Disease Follow Up: February 21, 2018 62 yo AA female with PMHx of Epilepsy, CAD s/p stent, HTN, COPD, presented to [facility] [place] [facility] on 02/19 w/ complaints of dyspnea at rest and at exertion, fatigue, subjective fevers, chills, and constant productive cough w/ dark green/yellow sputum which awakens patient at night. Started on Rocephin and Azithromycin. Now on Zosyn and Azithromycin. Patient feeling slightly better today. Objective - Vital Signs/Intake and Output Vital Signs (last 24 hours): Temp Pulse Resp BP Pulse Ox 97.4 F L 64 18 168/79 H 96 02/21/18 06:00 02/21/18 06:00 02/21/18 06:00 02/21/18 06:00 02/21/18 06:00 Intake and Output: 02/21/18 02/21/18 06:59 18:59 Intake Total 180 Balance 180 - Medications Medications: Current Medications Acetaminophen (Tylenol 325mg Tab) 650 mg PO Q4 PRN PRN Reason: Fever >100.4 F Albuterol/Ipratropium (Duoneb 3 Mg/0.5 Mg (3 Ml) Ud) 3 ml IH Q2H PRN PRN Reason: Shortness of Breath Albuterol/Ipratropium (Duoneb 3 Mg/0.5 Mg (3 Ml) Ud) 3 ml IH [id number] [facility] Last Admin: 02/21/18 11:36 Dose: 3 ml Arformoterol Tartrate (Brovana) 15 mcg IH [id number] [facility] Last Admin: 02/21/18 07:34 Dose: 15 mcg Aspirin (Aspirin Chewable) 81 mg PO DAILY [facility] Last Admin: 02/21/18 09:43 Dose: 81 mg Atorvastatin Calcium (Lipitor) 40 mg PO HS [facility] Last Admin: 02/20/18 22:07 Dose: 40 mg Budesonide (Pulmicort Respules) 1 mg IH [id number] [facility] Last Admin: 02/21/18 07:34 Dose: 1 mg Enoxaparin Sodium (Lovenox) 40 mg SC DAILY [facility]; Protocol Last Admin: 02/21/18 09:42 Dose: 40 mg Guaifenesin (Robitussin) 200 mg PO Q4H PRN PRN Reason: Cough and congestion Last Admin: 02/21/18 06:35 Dose: 200 mg Azithromycin (Zithromax 500mg In Ns) 500 mg in 250 mls @ 167 mls/hr IVPB DAILY [facility]; Protocol Last Admin: 02/21/18 09:42 Dose: 167 mls/hr Piperacillin Sod/Tazobactam Sod (Zosyn 3.375 In Ns 100ml) 100 mls @ 25 mls/hr IVPB Q8 [facility]; Protocol Last Admin: 02/21/18 06:23 Dose: 25 mls/hr Levetiracetam (Keppra) 500 mg PO BID [facility] Last Admin: 02/21/18 09:43 Dose: 500 mg Methadone HCl (Methadone) 110 mg PO DAILY [facility] Last Admin: 02/21/18 09:50 Dose: 110 mg Methylprednisolone (Solu-Medrol) 40 mg IVP Q8 [facility] Last Admin: 02/21/18 06:22 Dose: 40 mg Montelukast Sodium (Singulair) 10 mg PO HS [facility] Last Admin: 02/20/18 22:07 Dose: 10 mg Nifedipine (Procardia Xl) 30 mg PO DAILY [facility] Last Admin: 02/21/18 09:43 Dose: 30 mg Pantoprazole Sodium (Protonix Ec Tab) 40 mg PO 0600 [facility] Last Admin: 02/21/18 06:22 Dose: 40 mg Polyethylene Glycol (Miralax) 17 gm PO DAILY [facility] Promethazine HCl/Codeine (Phenergan/Codeine Oral Syrup) 5 ml PO HS PRN PRN Reason: Cough and congestion - Labs Labs: 02/21/18 07:15 02/21/18 07:15 - Constitutional Appears: Non-toxic, No Acute Distress, Chronically Ill - Head Exam Head Exam: ATRAUMATIC, NORMOCEPHALIC - Eye Exam Eye Exam: EOMI, PERRL Pupil Exam: NORMAL ACCOMODATION, PERRL - ENT Exam ENT Exam: Mucous Membranes Moist, Normal External Ear Exam, TM's Normal Bi laterally - Neck Exam Neck Exam: Full ROM, Normal Inspection - Respiratory Exam Respiratory Exam: Clear to Ausculation Bilateral, NORMAL BREATHING PATTERN. absent: Rales, Rhonchi, Wheezes - Cardiovascular Exam Cardiovascular Exam: REGULAR RHYTHM, RRR, +S1, +S2 - GI/Abdominal Exam GI & Abdominal Exam: Soft, Normal Bowel Sounds. absent: Distended, Tenderness - Extremities Exam Extremities Exam: Full ROM, Normal Inspection - Neurological Exam Neurological Exam: Alert, Awake, CN II-XII Intact, Oriented x3 - Psychiatric Exam Psychiatric exam: Normal Affect, Normal Mood - Skin Skin Exam: Intact, Normal Color Assessment and Plan - Assessment and Plan (Free Text) Assessment: 62 yo AA female presenting with pneumonia. Chest X-ray showing involvement of the bilateral lower lobes. The patient is currently on Rocephin and Azithromycin. On Zosyn and Azithromycin at this time. Check Procalcitonin. Supportive care. Procalcitonin of 3.31 and today is 1.70. Mild improvement. Noted that the WBC increased to 20.1. Case discussed with Dr. Aguilera. Thank you for allowing me to participate in the care of the patient, we will follow with you.
[2018-02-21] MEDS ORDERED: Acetylcysteine 20% Inhal Soln (4ml) IH PRN (16:40)
[2018-02-21] MEDS: Promethazine/Cod 6.25mg-10mg/5ml Syr UD PO PRN (18:05)
[2018-02-21] MEDS ORDERED: Promethazine/Cod 6.25mg-10mg/5ml Syr UD PO SCH (22:00)
[2018-02-22] MEDS: Promethazine/Cod 6.25mg-10mg/5ml Syr UD PO PRN ×3 (02:50→19:54)
[2018-02-22] MEDS: Albuterol-Ipratrop 3 mg / 0.5 (3 ml) UD IH SCH ×2 (05:06→20:50)
[2018-02-22] MEDS: Pantoprazole 40 mg EC Tab PO SCH (06:21)
[2018-02-22] MEDS: MethylPREDNISolone 40 mg Vial IVP SCH ×3 (06:21→22:08)
[2018-02-22] MEDS: Piperacillin/Tazobact 3.375 gm 100 ML IVPB SCH ×3 (06:22→22:09)
[2018-02-22 08:50] LABS: BASO # 0.01 K/mm3 (0.0-2.0); BASO % 0.1 % (0.0-3.0); GRAN # 10.95 (1.4-6.5); GRAN % 80.6 % (50.0-68.0); LYMPH # 1.7 (1.2-3.4); LYMPH % 12.4 % (22.0-35.0); MEAN CELL VOLUME 91.2 fl (80.0-105.0); MEAN CORPUSCULAR HEMOGLOBIN 28.7 pg (25.0-35.0); MEAN CORPUSCULAR HGB CONC 31.5 g/dl (31.0-37.0); MEAN PLATELET VOLUME 9.7 fl (7.0-11.0); MONO # 0.9 (0.1-0.6); MONO % 6.9 % (1.0-6.0); RBC 4.53 10^6/uL (3.5-6.1); RED CELL DISTRIBUTION WIDTH 13.7 % (11.5-14.5); WHITE BLOOD COUNT 13.6 10^3/uL (4.5-11.0)
[2018-02-22 09:51] VITALS: RESP 18
[2018-02-22] MEDS: Enoxaparin 40 mg Syringe SC SCH (09:53)
[2018-02-22] MEDS: Azithromycin 500MG/NS 250ml 500 MG/250 ML BAG IVPB SCH (09:53)
[2018-02-22] MEDS: POLYETHYLENE GLYCOL 3350 17 GM/Dose PACKET PO SCH (09:53)
[2018-02-22] MEDS: NIFEdipine 30 mg ER Tab PO SCH (09:54)
[2018-02-22 10:35] LABS: ALBUMIN 3.8 g/dL (3.0-4.8); ALT/SGPT 32 U/L (7-56); AST/SGOT 35 U/L (14-36); BLOOD UREA NITROGEN 14 mg/dL (7-21); CALCIUM 9.1 mg/dL (8.4-10.5); GFR NON-AFRICAN AMERICAN > 60
--- NOTE | 2018-02-22 12:32 | CP.PCM.PN ---
<Rafi Aguilera - Last Filed: 02/22/18 12:03> Subjective - Date & Time of Evaluation Date of Evaluation: 02/22/18 Time of Evaluation: 12:03 - Subjective Subjective: Rafi Aguilera DO PGY1 - Internal Medicine Waiter/Waitress Captain - Medicine Progress Note Patient was seen and examined this morning at bedside; she reports improvement in her breathing w/ use of incentive spirometer. Reports improved cough w/ promethazine/codeine syrup last. Denies chest pain, abd pain, n/v/d/c, urinary complaints. Objective - Vital Signs/Intake and Output Vital Signs (last 24 hours): Temp Pulse Resp BP Pulse Ox 98.3 F 62 18 160/80 H 95 02/22/18 06:00 02/22/18 06:00 02/22/18 06:00 02/22/18 06:00 02/22/18 06:00 Intake and Output: 02/22/18 02/22/18 06:59 18:59 Intake Total 240 Balance 240 - Medications Medications: Current Medications Acetaminophen (Tylenol 325mg Tab) 650 mg PO Q4 PRN PRN Reason: Fever >100.4 F Acetylcysteine (Acetylcysteine 20%) 4 ml IH [id number] PRN PRN Reason: Cough Last Admin: 02/21/18 20:32 Dose: 4 ml Albuterol/Ipratropium (Duoneb 3 Mg/0.5 Mg (3 Ml) Ud) 3 ml IH Q2H PRN PRN Reason: Shortness of Breath Albuterol/Ipratropium (Duoneb 3 Mg/0.5 Mg (3 Ml) Ud) 3 ml IH [id number] [facility] Last Admin: 02/22/18 05:06 Dose: Not Given Arformoterol Tartrate (Brovana) 15 mcg IH [id number] [facility] Last Admin: 02/21/18 20:18 Dose: 15 mcg Aspirin (Aspirin Chewable) 81 mg PO DAILY [facility] Last Admin: 02/22/18 09:54 Dose: 81 mg Atorvastatin Calcium (Lipitor) 40 mg PO HS [facility] Last Admin: 02/21/18 21:29 Dose: 40 mg Benzonatate (Tessalon Perles) 100 mg PO TID [facility] Last Admin: 02/22/18 09:53 Dose: 100 mg Budesonide (Pulmicort Respules) 1 mg IH [id number] [facility] Last Admin: 02/21/18 20:18 Dose: 1 mg Enoxaparin Sodium (Lovenox) 40 mg SC DAILY [facility]; Protocol Last Admin: 02/22/18 09:53 Dose: 40 mg Guaifenesin (Robitussin) 200 mg PO Q4H PRN PRN Reason: Cough and congestion Last Admin: 02/21/18 13:59 Dose: 200 mg Azithromycin (Zithromax 500mg In Ns) 500 mg in 250 mls @ 167 mls/hr IVPB DAILY [facility]; Protocol Last Admin: 02/22/18 09:53 Dose: 167 mls/hr Piperacillin Sod/Tazobactam Sod (Zosyn 3.375 In Ns 100ml) 100 mls @ 25 mls/hr IVPB Q8 [facility]; Protocol Last Admin: 02/22/18 06:22 Dose: 25 mls/hr Levetiracetam (Keppra) 500 mg PO BID [facility] Last Admin: 02/22/18 09:54 Dose: 500 mg Methadone HCl (Methadone) 110 mg PO DAILY [facility] Last Admin: 02/22/18 09:53 Dose: 110 mg Methylprednisolone (Solu-Medrol) 40 mg IVP Q8 [facility] Last Admin: 02/22/18 06:21 Dose: 40 mg Montelukast Sodium (Singulair) 10 mg PO HS [facility] Last Admin: 02/21/18 21:29 Dose: 10 mg Nifedipine (Procardia Xl) 30 mg PO DAILY [facility] Last Admin: 02/22/18 09:54 Dose: 30 mg Pantoprazole Sodium (Protonix Ec Tab) 40 mg PO 0600 [facility] Last Admin: 02/22/18 06:21 Dose: 40 mg Polyethylene Glycol (Miralax) 17 gm PO DAILY [facility] Last Admin: 02/22/18 09:53 Dose: 17 gm Promethazine HCl/Codeine (Phenergan/Codeine Oral Syrup) 5 ml PO Q8 PRN PRN Reason: Cough Stop: 02/23/18 22:01 Last Admin: 02/22/18 11:21 Dose: 5 ml - Labs Labs: 02/22/18 08:30 02/22/18 06:00 Physical Exam - Constitutional Appears: Uncomfotable, Coughing, Ill, Does not appear toxic - Head Exam Head Exam: ATRAUMATIC, NORMOCEPHALIC - Eye Exam Eye Exam: EOMI, Normal appearance, PERRL - ENT Exam ENT Exam: Moist mucous membranes, No oropharyngeal erythema or exudate - Neck Exam Neck exam: No cervical lymphadenopathy - Respiratory Exam Respiratory Exam: Coarse breath sounds bilaterally, diffuse wheezing throughout all lung mendoza, - Cardiovascular Exam Cardiovascular Exam: RRR, +S1, +S2 - GI/Abdominal Exam GI & Abdominal Exam: Normal Bowel Sounds, Soft. absent: Tenderness - Extremities Exam Extremities exam: Positive for: pedal pulses present. Negative for: pedal edema - Neurological Exam Neurological exam: Alert, Oriented x3 - Psychiatric Exam Psychiatric exam: Normal Affect, Normal Mood - Skin Skin Exam: Dry, Intact, Normal Color Assessment and Plan - Assessment and Plan (Free Text) Assessment: 62F w/ PMH of Epilepsy, CAD s/p stent, HTN, COPD, presented to [facility] ED on 02/19 w/ complaints of fever, dyspnea, and cough. Admitted for work up and management of Sepsis 2/2 CAP; as well as COPD exacerbation w/ respiratory failure 2/2 CAP. Plan: CAP - No longer meeting sepsis critera - CXR 02/19 - Bibasilar infiltrates - Leukocytosis improving - Flu, Strep HIV, GBS, Mycoplasma negative - Legionella pending - Sputum Cx - normal oral humble - Blood Cx 2/2 negative at 3days - Antibiotic coverage day 4 - C/w Zosyn, C/w Zithromax 500 QD - C/w Acetaminophen 650mg PRN for fever + mild pain - C/w Robitussin during the day - C/w Promethazine/Codeine HS for cough - 2 nights total; ending 02/22 PM - ID following Appreciate Recs COPD Exacerbation w/ respiratory failure 2/2 CAP: C/w 3L O2 via NC - Maintain O2 Sat 90-92% C/w Solumedrol 40 Q8 x 4 days - Day 4 C/w Duoneb frequency Q4sch/Q2prn Home Symbicort NF here; C/w Brovana + Budesonide Q12 C/w Singulair QD Hx HTN Patient remains hypertensive this morning C/w nifedipine Will recheck BP and adjust rx as necessary Hx Seizure C/w Keppra 500 BID Hx Opiate Abuse C/w Home Methadone 110 QAM - confirmed w/ spectrum Hx Constipation - Most likely opiate induced Start miralax 17gm QD Hx HLD C/w Home lipitor Hx CAD C/w ASA 81 QD Prophylaxis GI: Protonix DVT: Lovenox Patient was seen, examined, and discussed w/ attending physician Dr. Delia Aguilera DO PGY1 - Internal Medicine Waiter/Waitress Captain - Medicine H&P <Delia Aguilera R - Last Filed: 02/23/18 18:49> Objective - Vital Signs/Intake and Output Vital Signs (last 24 hours): Temp Pulse Resp BP Pulse Ox 97.8 F 59 L 18 147/85 94 L 02/23/18 06:00 02/23/18 06:00 02/23/18 06:00 02/23/18 10:18 02/23/18 06:00 Intake and Output: 02/23/18 02/23/18 06:59 18:59 Intake Total 720 Balance 720 - Labs Labs: 02/23/18 07:00 02/23/18 07:00 Attending/Attestation - Attestation I have personally seen and examined this patient.: Yes I have fully participated in the care of the patient.: Yes I have reviewed all pertinent clinical information, including history, physical exam and plan: Yes Notes (Text): Patient seen and examined by me with resident at 9:35AM on 02/22/18. Case including HPI, physical exam, and assessment and plan discussed with resident. Agree with above with following additions/corrections. Patient is a 62-year-old female past medical history significant for seizures, coronary artery disease, hypercholesterolemia, hypertension, and COPD the presented to emergency room with shortness of breath, productive cough, and fever. Patient states that she feels better. Cough has improved today. Shortness of breath also continues to improve. Patient denies chest pain or palpitations. No nausea, vomiting, or abdominal pain. No fevers or chills. No headaches or dizziness. No dysuria. Patient is eating well. Physical exam: General: Awake and alert sitting up in bed in no acute distress HEENT: Normocephalic, atraumatic. Extraocular muscles intact, pupils equal and reactive, no scleral icterus. Oropharynx is pink and moist. No pharyngeal erythema or exudate appreciated. Neck is supple. Cardiovascular: Regular rhythm. Normal S1 and S2.No murmurs, rubs, or gallops appreciated Pulmonary: Normal respiratory effort. Positive wheezing and coarse breath sounds throughout. No rales appreciated. Gastrointestinal: Soft, nondistended. Nontender. Positive bowel sounds all 4 quadrants. No guarding. Musculoskeletal: Moves all extremities. No calf tenderness. No edema appreciated. No CVA tenderness. Central nervous system: AAO x3, CN 2-12 grossly intact Dermatologic: Skin warm and dry. Assessment and plan: Patient is a 62-year-old female past medical history significant for seizures, coronary artery disease, hypercholesterolemia, hypertension, and COPD the presented to emergency room with shortness of breath, productive cough, and fever. 1. Sepsis secondary to community-acquired pneumonia. Fever and tachycardia resol tiffani. Leukocytosis downtrending. Sepsis resolved. ID following, recommendations appreciated. Continue Zosyn and Zithromax. Influenza, strep Pneumoniae, mycoplasma antigen, and urine for Legionella negative. Pro-calcitonin 3.31. Repeat procalcitonin 1.70. Lactate 0.9. Chest xray per radiologist showed bibasilar infiltrates. 2. COPD exacerbation with hypoxemia secondary to pneumonia. Continue O2 via nasal cannula as needed. Continue Solu-Medrol 40 mg IV every 8 hours, taper when improved. Continue Brovana and Pulmicort. Continue phenergan with codeine to help with suppression of cough. Continue Tessalon Perles as needed. Continue nebulizer treatments. Continue singulair 3. HTN. Continue Nifedipine 4. CAD. Continue ASA and Nifedipine. Continue Lipitor 5. Seziure disorder. Continue Keppra 500mg PO BID. 6. Hypercholesterolemia. Continue lipitor 7. History of heroin abuse. Continue methadone. Confirmed with patient's methadone clinic. 8. GI/DVT prophylaxis. Protonix/Lovenox 9. Patient is a full code Case was discussed in detail with patient regarding current diagnosis and treatment plan. All questions answered.
--- NOTE | 2018-02-22 17:00 | CP.PCM.PN ---
Subjective - Date & Time of Evaluation Date of Evaluation: 02/22/18 Time of Evaluation: 15:30 - Subjective Subjective: Infectious Disease Follow Up: February 22, 2018 62 yo AA female with PMHx of Epilepsy, CAD s/p stent, HTN, COPD, presented to [facility] ED on 02/19 w/ complaints of dyspnea at rest and at exertion, fatigue, subjective fevers, chills, and constant productive cough w/ dark green/yellow sputum which awakens patient at night. Started on Rocephin and Azithromycin. Now on Zosyn and Azithromycin. Patient feeling better today. On 2L NC. Objective - Vital Signs/Intake and Output Vital Signs (last 24 hours): Temp Pulse Resp BP Pulse Ox 98.5 F 75 18 128/75 95 02/22/18 14:00 02/22/18 14:00 02/22/18 14:00 02/22/18 14:00 02/22/18 14:00 Intake and Output: 02/22/18 02/22/18 06:59 18:59 Intake Total 240 Balance 240 - Medications Medications: Current Medications Acetaminophen (Tylenol 325mg Tab) 650 mg PO Q4 PRN PRN Reason: Fever >100.4 F Acetylcysteine (Acetylcysteine 20%) 4 ml IH [id number] PRN PRN Reason: Cough Last Admin: 02/21/18 20:32 Dose: 4 ml Albuterol/Ipratropium (Duoneb 3 Mg/0.5 Mg (3 Ml) Ud) 3 ml IH Q2H PRN PRN Reason: Shortness of Breath Albuterol/Ipratropium (Duoneb 3 Mg/0.5 Mg (3 Ml) Ud) 3 ml IH [id number] [facility] Last Admin: 02/22/18 05:06 Dose: Not Given Arformoterol Tartrate (Brovana) 15 mcg IH [id number] [facility] Last Admin: 02/21/18 20:18 Dose: 15 mcg Aspirin (Aspirin Chewable) 81 mg PO DAILY [facility] Last Admin: 02/22/18 09:54 Dose: 81 mg Atorvastatin Calcium (Lipitor) 40 mg PO HS [facility] Last Admin: 02/21/18 21:29 Dose: 40 mg Benzonatate (Tessalon Perles) 100 mg PO TID [facility] Last Admin: 02/22/18 13:53 Dose: 100 mg Budesonide (Pulmicort Respules) 1 mg IH [id number] [facility] Last Admin: 02/21/18 20:18 Dose: 1 mg Enoxaparin Sodium (Lovenox) 40 mg SC DAILY [facility]; Protocol Last Admin: 02/22/18 09:53 Dose: 40 mg Azithromycin (Zithromax 500mg In Ns) 500 mg in 250 mls @ 167 mls/hr IVPB DAILY [facility]; Protocol Last Admin: 02/22/18 09:53 Dose: 167 mls/hr Piperacillin Sod/Tazobactam Sod (Zosyn 3.375 In Ns 100ml) 100 mls @ 25 mls/hr IVPB Q8 [facility]; Protocol Last Admin: 02/22/18 13:52 Dose: 25 mls/hr Levetiracetam (Keppra) 500 mg PO BID [facility] Last Admin: 02/22/18 09:54 Dose: 500 mg Methadone HCl (Methadone) 110 mg PO DAILY [facility] Last Admin: 02/22/18 09:53 Dose: 110 mg Methylprednisolone (Solu-Medrol) 40 mg IVP Q8 [facility] Last Admin: 02/22/18 13:53 Dose: 40 mg Montelukast Sodium (Singulair) 10 mg PO HS [facility] Last Admin: 02/21/18 21:29 Dose: 10 mg Nifedipine (Procardia Xl) 30 mg PO DAILY [facility] Last Admin: 02/22/18 09:54 Dose: 30 mg Pantoprazole Sodium (Protonix Ec Tab) 40 mg PO 0600 [facility] Last Admin: 02/22/18 06:21 Dose: 40 mg Polyethylene Glycol (Miralax) 17 gm PO DAILY [facility] Last Admin: 02/22/18 09:53 Dose: 17 gm Promethazine HCl/Codeine (Phenergan/Codeine Oral Syrup) 5 ml PO Q8 PRN PRN Reason: Cough Stop: 02/23/18 22:01 Last Admin: 02/22/18 11:21 Dose: 5 ml - Labs Labs: 02/22/18 08:30 02/22/18 06:00 - Constitutional Appears: Non-toxic, No Acute Distress, Chronically Ill - Head Exam Head Exam: ATRAUMATIC, NORMOCEPHALIC - Eye Exam Eye Exam: EOMI, PERRL Pupil Exam: NORMAL ACCOMODATION, PERRL - ENT Exam ENT Exam: Mucous Membranes Moist, Normal External Ear Exam, TM's Normal Bilaterally - Neck Exam Neck Exam: Full ROM, Normal Inspection - Respiratory Exam Respiratory Exam: Clear to Ausculation Bilateral, NORMAL BREATHING PATTERN. absent: Rales, Rhonchi, Wheezes - Cardiovascular Exam Cardiovascular Exam: REGULAR RHYTHM, RRR, +S1, +S2 - GI/Abdominal Exam GI & Abdominal Exam: Soft, Normal Bowel Sounds. absent: Distended, Tenderness - Extremities Exam Extremities Exam: Full ROM, Normal Inspection - Neurological Exam Neurological Exam: Alert, Awake, CN II-XII Intact, Oriented x3 - Psychiatric Exam Psychiatric exam: Normal Affect, Normal Mood - Skin Skin Exam: Intact, Normal Color Assessment and Plan - Assessment and Plan (Free Text) Assessment: 62 yo AA female presenting with pneumonia. Chest X-ray showing involvement of the bilateral lower lobes. The patient is currently on Rocephin and Azithromycin. On Zosyn and Azithromycin at this time. Check Procalcitonin. Supportive care. Procalcitonin of 3.31 and today is 1.70. Mild improvement. Noted that the WBC increased to 20.1 yesterday but has now improved to 13.6. Breathing improving. Case discussed with Dr. Aguilera. Thank you for allowing me to participate in the care of the patient, we will follow with you.
[2018-02-22] MEDS: Budesonide 0.5 mg/2 ml Inhal Susp UD IH SCH (20:50)
[2018-02-22] MEDS: Arformoterol 15 mcg/2 ml Inh Sol IH SCH (20:50)
[2018-02-23] MEDS: Albuterol-Ipratrop 3 mg / 0.5 (3 ml) UD IH SCH ×4 (01:45→11:05)
[2018-02-23] MEDS: Pantoprazole 40 mg EC Tab PO SCH (06:21)
[2018-02-23] MEDS: MethylPREDNISolone 40 mg Vial IVP SCH (06:21)
[2018-02-23] MEDS: Piperacillin/Tazobact 3.375 gm 100 ML IVPB SCH (06:22)
[2018-02-23] MEDS: Promethazine/Cod 6.25mg-10mg/5ml Syr UD PO PRN (06:28)
[2018-02-23 07:33] LABS: BASO # 0.01 K/mm3 (0.0-2.0); BASO % 0.1 % (0.0-3.0); GRAN # 10.18 (1.4-6.5); GRAN % 77.4 % (50.0-68.0); HEMOGLOBIN 13.8 g/dL (12.0-16.0); LYMPH % 15.3 % (22.0-35.0); MEAN CELL VOLUME 90.9 fl (80.0-105.0); MEAN CORPUSCULAR HEMOGLOBIN 29.3 pg (25.0-35.0); MEAN CORPUSCULAR HGB CONC 32.2 g/dl (31.0-37.0); MEAN PLATELET VOLUME 9.8 fl (7.0-11.0); MONO % 7.2 % (1.0-6.0); RBC 4.71 10^6/uL (3.5-6.1); RED CELL DISTRIBUTION WIDTH 13.4 % (11.5-14.5); WHITE BLOOD COUNT 13.2 10^3/uL (4.5-11.0)
[2018-02-23] MEDS: Arformoterol 15 mcg/2 ml Inh Sol IH SCH (07:46)
[2018-02-23] MEDS: Budesonide 0.5 mg/2 ml Inhal Susp UD IH SCH (07:46)
[2018-02-23 07:48] LABS: ALBUMIN 3.9 g/dL (3.0-4.8); ALT/SGPT 37 U/L (7-56); AST/SGOT 24 U/L (14-36); BLOOD UREA NITROGEN 16 mg/dL (7-21); CALCIUM 9.4 mg/dL (8.4-10.5); GFR NON-AFRICAN AMERICAN > 60
[2018-02-23 08:01] VITALS: PULSE 59; TEMP 97.8; O2SAT 94
[2018-02-23] MEDS: Enoxaparin 40 mg Syringe SC SCH (10:00)
[2018-02-23] MEDS ORDERED: MethylPREDNISolone 40 mg Vial IVP SCH (10:00)
[2018-02-23] MEDS: POLYETHYLENE GLYCOL 3350 17 GM/Dose PACKET PO SCH (10:00)
[2018-02-23] MEDS: Azithromycin 500MG/NS 250ml 500 MG/250 ML BAG IVPB SCH ×2 (10:08→13:40)
[2018-02-23] MEDS: NIFEdipine 30 mg ER Tab PO SCH (10:18)
[2018-02-23 10:19] VITALS: BP 147/85
--- NOTE | 2018-02-23 13:01 | CP.PCM.DIS ---
Provider - Provider Date of Admission: 02/19/18 13:12 Attending physician: Delia Aguilera DO Primary care physician: Dalia Bravo MD Consults: 02/19/18 14:40 Infectious Disease Consult Routine Comment: Consulting Provider: Dexter Nye Consulting Physician: Dexter Nye Reason for Consult: CAP 02/19/18 21:43 Inpatient [employer]ANT [employer] Core Measures Referral Routine Comment: pneumonia Physician Instructions: Reason For Exam: eval Transition In Care/Readmission Reduction Routine Comment: pneumonia Physician Instructions: Reason For Exam: eval Time Spent in preparation of Discharge (in minutes): 45 Diagnosis - Discharge Diagnosis (1) Respiratory failure with hypoxia Status: Acute (2) COPD with exacerbation Status: Acute (3) Pneumonia Status: Acute Hospital Course - Lab Results Lab Results: Micro Results 02/19/18 12:18 Blood-Thru Central Line Blood Culture - Preliminary NO GROWTH AFTER 4 DAYS 02/19/18 12:48 Blood-Thru Central Line Blood Culture - Preliminary NO GROWTH AFTER 3 DAYS 02/19/18 11:25 Sputum Induced Gram Stain - Final 02/19/18 11:25 Sputum Induced Sputum Culture - Final NORMAL ORAL HUMBLE 02/19/18 14:16 Throat Group A Strep Throat Culture - Final NO BETA STREP GROUP A ISOLATED. Most Recent Lab Values WBC 13.2 10^3/uL (4.5-11.0) H 02/23/18 07:00 RBC 4.71 10^6/uL (3.5-6.1) 02/23/18 07:00 Hgb 13.8 g/dL (12.0-16.0) 02/23/18 07:00 Hct 42.8 % (36.0-48.0) 02/23/18 07:00 MCV 90.9 fl (80.0-105.0) 02/23/18 07:00 MCH 29.3 pg (25.0-35.0) 02/23/18 07:00 MCHC 32.2 g/dl (31.0-37.0) 02/23/18 07:00 RDW 13.4 % (11.5-14.5) 02/23/18 07:00 Plt Count 298 10^3/uL (120.0-450.0) 02/23/18 07:00 MPV 9.8 fl (7.0-11.0) 02/23/18 07:00 Gran % 77.4 % (50.0-68.0) H 02/23/18 07:00 Lymph % (Auto) 15.3 % (22.0-35.0) L 02/23/18 07:00 [place] % (Auto) 7.2 % (1.0-6.0) H 02/23/18 07:00 Eos % (Auto) 0.0 % (1.5-5.0) L 02/23/18 07:00 Baso % (Auto) 0.1 % (0.0-3.0) 02/23/18 07:00 Gran # 10.18 (1.4-6.5) H 02/23/18 07:00 Lymph # (Auto) 2.0 (1.2-3.4) 02/23/18 07:00 [place] # (Auto) 1.0 (0.1-0.6) H 02/23/18 07:00 Eos # (Auto) 0.0 (0.0-0.7) 02/23/18 07:00 Baso # (Auto) 0.01 K/mm3 (0.0-2.0) 02/23/18 07:00 Neutrophils % (Manual) 92 % (50.0-70.0) H 02/20/18 07:30 Lymphocytes % (Manual) 7 % (22.0-35.0) L 02/20/18 07:30 Monocytes % (Manual) 1 % (1.0-6.0) 02/20/18 07:30 Platelet Evaluation Normal (NORMAL) 02/20/18 07:30 pO2 62 mm/Hg (30-55) H 02/19/18 12:18 VBG pH 7.36 (7.32-7.43) 02/19/18 12:18 VBG pCO2 53.0 (40-60) 02/19/18 12:18 VBG HCO3 29.9 mmol/l (21-28) H 02/19/18 12:18 VBG Total CO2 31.5 mmol.L (22-28) H 02/19/18 12:18 VBG O2 Sat (Calc) 89.8 % (40-65) H 02/19/18 12:18 VBG Base Excess 3.2 mmol/L (0.0-2.0) H 02/19/18 12:18 VBG Potassium 4.1 mmol/L (3.6-5.2) 02/19/18 12:18 Sodium 137.0 mmol/L (132-148) 02/19/18 12:18 Chloride 103.0 mmol/L (98-107) 02/19/18 12:18 Glucose 104 mg/dl (65-105) 02/19/18 12:18 Lactate 0.9 mmol/L (0.7-2.1) 02/19/18 12:18 FiO2 21.0 % 02/19/18 12:18 Sodium 137 mmol/L (132-148) 02/23/18 07:00 Potassium 4.3 mmol/L (3.6-5.0) 02/23/18 07:00 Chloride 100 mmol/L (98-107) 02/23/18 07:00 Carbon Dioxide 30 mmol/L (21-33) 02/23/18 07:00 Anion Gap 11 (10-20) 02/23/18 07:00 BUN 16 mg/dL (7-21) 02/23/18 07:00 Creatinine 0.6 mg/dl (0.7-1.2) L 02/23/18 07:00 Est GFR ( Amer) > 60 02/23/18 07:00 Est GFR (Non-Af Amer) > 60 02/23/18 07:00 Random Glucose 190 mg/dL (70-110) H 02/23/18 07:00 Calcium 9.4 mg/dL (8.4-10.5) 02/23/18 07:00 Phosphorus 2.2 mg/dL (2.5-4.5) L 02/19/18 12:18 Magnesium 2.2 mg/dL (1.7-2.2) 02/19/18 12:18 Total Bilirubin 0.4 mg/dL (0.2-1.3) 02/23/18 07:00 AST 24 U/L (14-36) 02/23/18 07:00 ALT 37 U/L (7-56) 02/23/18 07:00 Alkaline Phosphatase 83 U/L (38-126) 02/23/18 07:00 Total Protein 7.8 g/dL (5.8-8.3) 02/23/18 07:00 Albumin 3.9 g/dL (3.0-4.8) 02/23/18 07:00 Globulin 3.9 gm/dL 02/23/18 07:00 Albumin/Globulin Ratio 1.0 (1.1-1.8) L 02/23/18 07:00 Procalcitonin 1.70 NG/ML (0.19-0.49) H 02/20/18 07:30 Venous Blood Potassium 4.1 mmol/L (3.6-5.2) 02/19/18 12:18 HIV 1&2 Antibody Screen Negative (NEGATIVE) 02/19/18 13:50 Influenza Typ A,B (EIA) Negative for flu a/b (NEGATIVE) 02/19/18 13:54 Mycoplasma pneumon IgM Negative (NEGATIVE) 02/19/18 13:50 Grp A Beta Strep Ag Negative (NEGATIVE) 02/19/18 14:16 - Hospital Course Hospital Course: Rafi Aguilera DO PGY1 Internal Medicine Lead Nuclear Medicine Technologist - Medicine DC Summary Disclaimer: please note this is a brief synopsis of the patient's hospital course; for full hospital record please refer to EMR Please note: PATIENT LEFT AMA FROM THIS FACILITY Upon initial presentation, Patient is a 62F w/ PMH of Epilepsy, CAD s/p stent, HTN, COPD (not on home O2) , presented to [facility] on 02/19 w/ complaints of fever, dyspnea, and cough. Initially, Patient presented w/ fever, tachycardia, leukocytosis, and bibasilar infiltrate on cxr. She was subsequently admitted for work up and management of Sepsis 2/2 CAP; as well as COPD exacerbation w/ respiratory failure 2/2 CAP. Infectious disease service was consulted. Patient was started on high dose steroid therapy, duonebs, antitussive medication, and IV antibiotics. Patient completed 4 day course of IV ABX, as well as steroid therapy. After initial presentation sepsis criteria resolved, and patient began showing incremental improvement however she continued to present w/ ronchorous breath sounds, and wheezing. Blood cultures have remained negative at 4 days; sputum cx only showing normal oral humble. Flu/ Strep/ HIV/ and Mycoplasma testing returned negative. On day 4 of admission patient reported she was feeling much better and wanted to leave; she was ambulated w/ pulse oximetry and noted to desaturate <90%. Patient was advised she would require further hospitalization/ management for safe discharge however she refused. She was informed of risks of leaving AMA as well as benefits of continued hospitalization. Patient subsequently signed out AMA. Prescriptions for antibiotics and steroid therapy were provided for patient. Patient has left the facility against medical advice at this time. Discharge Exam - Head Exam Head Exam: ATRAUMATIC, NORMOCEPHALIC - Eye Exam Eye Exam: EOMI, Normal appearance, PERRL - Respiratory Exam Additional comments: Crackles, Diffuse expiratory wheezes, Diminished breath sounds, and prologned expiratory phase on auscultation. - Cardiovascular Exam Cardiovascular Exam: RRR, +S1, +S2 - GI/Abdominal Exam GI & Abdominal Exam: Normal Bowel Sounds, Unremarkable - Extremities Exam Extremities exam: pedal pulses present (2+ DP BL ) - Neurological Exam Neurological exam: Alert, CN II-XII Intact, Normal Gait, Oriented x3 - Psychiatric Exam Psychiatric exam: Normal Affect, Normal Mood - Skin Skin Exam: Dry, Intact, Normal Color, Warm Discharge Plan - Discharge Medications Prescriptions: Amoxicillin/Clavulanate [Augmentin 875 MG-125 MG] 1 tab PO Q12 10 Days #20 tab Azithromycin 250 mg PO DAILY #4 tablet Benzonatate [Tessalon Perles] 100 mg PO TID PRN #15 sgl PRN Reason: Cough Lactobacillus Acidophilus [Bacid Acidophilus] 0 cap PO DAILY #10 cap Prednisone [Deltasone] See Taper PO DAILY 12 Days tablet - Follow Up Plan Condition: FAIR Disposition: AGAINST MEDICAL ADVICE Patient education suggested?: Yes Instructions: Pneumonia, Adult (DC), Flu Vaccine Additional Instructions: 1. Please follow up with your primary care doctor within 3-5 days (as you stated, you have an appointement 02/26/18). You will need repeat blood work and a repeat chest xray for resolution of your pneumonia. 2. You have been given two antibiotics to take; azithromycin and augmentin. Please take each as prescribed for the next ten days. You will also be prescribed a prednisone taper which you will take daily for the next 12 days. Tessalon perles can be taken for cough as needed. Bacid will be taken in addition to the antibiotics to maintain gut humble as you are on antibiotics that can cause diarrhea and upset stomach. Please take antibiotics with food. 3.If symptoms return, please go to your nearest emergency department. Referrals: Lawrence,Saquiba, MD [Primary Care Provider] -
== END 2018-02-23 14:50 | disposition left against medical advice (07) | DRG 584 ==
LOC: ED 10:03 → ERH 13:12 → 5RSO 15:40
PROVIDERS: ADMIT Hospitalist; ATTEND Hospitalist
DX: A41.9 Sepsis, unspecified organism (principal); J18.9 Pneumonia, unspecified organism; J96.91 Respiratory failure, unspecified with hypoxia; J44.0 Chronic obstructive pulmonary disease with (acute) lower respiratory infection; J44.1 Chronic obstructive pulmonary disease with (acute) exacerbation; I34.1 Nonrheumatic mitral (valve) prolapse; E78.00 Pure hypercholesterolemia, unspecified; Z81.1 Family history of alcohol abuse and dependence; G40.909 Epilepsy, unspecified, not intractable, without status epilepticus; I10 Essential (primary) hypertension; I25.10 Atherosclerotic heart disease of native coronary artery without angina pectoris; K21.9 Gastro-esophageal reflux disease without esophagitis; Z79.82 Long term (current) use of aspirin; Z82.49 Family history of ischemic heart disease and other diseases of the circulatory system; Z87.01 Personal history of pneumonia (recurrent); Z87.891 Personal history of nicotine dependence; Z95.5 Presence of coronary angioplasty implant and graft; Z96.642 Presence of left artificial hip joint